=== PATIENT | female | born 1975 | race Caucasian/White ===

== ENCOUNTER 2023-09-02 09:06 | Emergency (ER) | payer OTHER ==
[2023-09-02] MEDS ORDERED: Naloxone 0.4 MG/ML SDV IVPUSH PRN (10:20)
[2023-09-02] MEDS: HYDROmorphone 0.5 MG/0.5 ML Syringe IM ONE (10:58)
== END 2023-09-02 12:30 | disposition home or self-care (01) ==
LOC: JP.ED 09:06
DX: M54.16 Radiculopathy, lumbar region (principal); Z88.0 Allergy status to penicillin
CPT/HCPCS: 72110; 96372; 99284; J1170